=== PATIENT | female | born 1960 | race Asian ===

== ENCOUNTER 2017-04-06 14:38 | Inpatient (IN) | payer OTHER ==
[~2017-04-06] VITALS: Ht 154.9 cm; Wt 51.8 kg
[2017-04-06 17:31] LABS: BASOPHIL % 0.5 % (0-2); PLATELET COUNT 230 x10^3mcL (130-400)
[2017-04-06 17:48] LABS: CALCIUM 8.8 mg/dL (8.5-10.1); CARBON DIOXIDE 28.3 mmol/L (21-32); CHLORIDE SERUM 104 mmol/L (98-107); CREATININE SERUM 0.6 mg/dL (0.6-1.0); GFR1 > 60 mL/min; GLUCOSE SERUM 100 mg/dL (74-106); POTASSIUM SERUM 3.9 mmol/L (3.5-5.1); SODIUM SERUM 139 mmol/L (136-145)
[2017-04-06 17:52] LABS: ALKALINE PHOSPHATASE 63 U/L (46-116); ALT/SGPT 25 U/L (14-59); AST/SGOT 25 U/L (15-37); BILIRUBIN TOTAL 0.3 mg/dL (0.20-1.00); TOTAL PROTEIN, SERUM 8.2 g/dL (6.4-8.2)
[2017-04-06 18:08] LABS: ALBUMIN 3.2 g/dL (3.4-5.0)
[2017-04-06 19:33] LABS: CHOLESTEROL/HDL RATIO 2.9; MAGNESIUM 2.2 mg/dL (1.8-2.4); PHOSPHOROUS 3.2 mg/dL (2.5-4.9)
[2017-04-06 19:40] LABS: FREE T4 1.44 ng/dL (0.76-1.46); FREE THYROXINE INDEX 3.8 ug/dL (1.4-4.5); T4(THYROXINE) 10.6 ug/dL (4.7-13.3)
[2017-04-06 19:55] LABS: T3 TOTAL 0.91 ng/mL
[2017-04-06] MEDS ORDERED: AMOXICILLIN500 MG PO (22:10)
[2017-04-06 22:14] VITALS: BP 145/69
[2017-04-06 23:46] LABS: TOTAL IRON BINDING CAPACITY 266 ug/dL (250-450)
[2017-04-06 23:50] LABS: RED BLOOD CELLS 3.51 M/mm3 (4.10-5.10)
[2017-04-07 00:12] LABS: IRON 28 ug/dL (50-170)
[2017-04-07 00:25] LABS: microscopic required? YES; urine erythrocyte NEGATIVE (NEGATIVE)
[2017-04-07 00:32] LABS: AMPHETAMINE QUAL UR NONE DETECTED (NEG <=1000)
[2017-04-07 05:32] VITALS: BP 139/70
[2017-04-07 10:23] VITALS: BP 106/51
[2017-04-07 10:46] LABS: BASOPHIL % 0.3 % (0-2); PLATELET COUNT 211 x10^3mcL (130-400); RED CELL DISTRIBUTION WIDTH 13.9 % (11.5-14.5)
[2017-04-07 10:56] LABS: CALCIUM 8.8 mg/dL (8.5-10.1); CARBON DIOXIDE 27.2 mmol/L (21-32); CHLORIDE SERUM 105 mmol/L (98-107); CREATININE SERUM 0.6 mg/dL (0.6-1.0); GFR1 > 60 mL/min; GLUCOSE SERUM 130 mg/dL (74-106); MAGNESIUM 2.1 mg/dL (1.8-2.4); PHOSPHOROUS 3.1 mg/dL (2.5-4.9); POTASSIUM SERUM 3.9 mmol/L (3.5-5.1); SODIUM SERUM 141 mmol/L (136-145)
[2017-04-07 18:13] VITALS: BP 136/69
[2017-04-07 20:18] VITALS: BP 120/55
[2017-04-08 04:55] VITALS: BP 135/79
[2017-04-08 08:10] VITALS: BP 128/74
[2017-04-08 12:02] VITALS: BP 124/53
[2017-04-08 15:33] LABS: BASOPHIL % 0.4 % (0-2); PLATELET COUNT 235 x10^3mcL (130-400); RED CELL DISTRIBUTION WIDTH 14.3 % (11.5-14.5)
[2017-04-08 15:35] LABS: CALCIUM 8.5 mg/dL (8.5-10.1); CARBON DIOXIDE 30.2 mmol/L (21-32); CHLORIDE SERUM 107 mmol/L (98-107); CREATININE SERUM 0.6 mg/dL (0.6-1.0); GFR1 > 60 mL/min; GLUCOSE SERUM 103 mg/dL (74-106); POTASSIUM SERUM 3.9 mmol/L (3.5-5.1); SODIUM SERUM 142 mmol/L (136-145)
[2017-04-08 17:17] VITALS: BP 141/74
[2017-04-08 20:15] VITALS: BP 140/66
[2017-04-09 06:11] VITALS: BP 122/59
[2017-04-09 06:38] LABS: BASOPHIL % 0.4 % (0-2); PLATELET COUNT 174 x10^3mcL (130-400); RED CELL DISTRIBUTION WIDTH 14.1 % (11.5-14.5)
[2017-04-09 06:48] LABS: CALCIUM 8.6 mg/dL (8.5-10.1); CARBON DIOXIDE 27.4 mmol/L (21-32); CHLORIDE SERUM 105 mmol/L (98-107); CREATININE SERUM 0.6 mg/dL (0.6-1.0); GFR1 > 60 mL/min; GLUCOSE SERUM 96 mg/dL (74-106); POTASSIUM SERUM 4.2 mmol/L (3.5-5.1); SODIUM SERUM 139 mmol/L (136-145)
[2017-04-09 09:49] VITALS: BP 127/75
[2017-04-09 17:00] VITALS: BP 104/47
[2017-04-09 22:16] VITALS: BP 107/65
[2017-04-10 06:07] VITALS: BP 122/52
[2017-04-10 08:27] VITALS: BP 117/67
[2017-04-10 17:44] VITALS: BP 107/52
[2017-04-10 21:00] VITALS: BP 143/59
[2017-04-11 05:10] VITALS: BP 128/71
[2017-04-11 06:56] LABS: PLATELET COUNT 156 x10^3mcL (130-400); RED CELL DISTRIBUTION WIDTH 13.5 % (11.5-14.5)
[2017-04-11 07:23] LABS: CALCIUM 8.3 mg/dL (8.5-10.1); CARBON DIOXIDE 26.5 mmol/L (21-32); CHLORIDE SERUM 104 mmol/L (98-107); CREATININE SERUM 0.6 mg/dL (0.6-1.0); GFR1 > 60 mL/min; GLUCOSE SERUM 97 mg/dL (74-106); POTASSIUM SERUM 3.9 mmol/L (3.5-5.1); SODIUM SERUM 139 mmol/L (136-145)
[2017-04-11 07:57] VITALS: BP 138/67
[2017-04-11 12:22] LABS: ATYPICAL LYMPH 2 %; BASOPHIL 0 % (0-2); MONOCYTE 18 % (0-7); SEGMENTED NEUTROPHILS 54 % (37-75)
[2017-04-11 12:23] LABS: PLATELET MORPHOLOGY D; rbc morphology (normal/abnorm) ABNORMAL (NORMAL)
[2017-04-11 16:17] VITALS: BP 138/73
[2017-04-11 22:31] VITALS: BP 111/57
[2017-04-12 06:11] LABS: BASOPHIL % 0.1 % (0-2); PLATELET COUNT 167 x10^3mcL (130-400)
[2017-04-12 06:17] LABS: RED CELL DISTRIBUTION WIDTH 14.6 % (11.5-14.5)
[2017-04-12 07:12] VITALS: BP 108/64
[2017-04-12 18:05] VITALS: BP 105/49
[2017-04-12 21:52] VITALS: BP 93/51
[2017-04-13 05:52] VITALS: BP 100/65
[2017-04-13 07:33] LABS: BASOPHIL % 0.3 % (0-2); PLATELET COUNT 157 x10^3mcL (130-400); RED CELL DISTRIBUTION WIDTH 14.3 % (11.5-14.5)
[2017-04-13 09:39] VITALS: BP 104/63
[2017-04-13 12:32] VITALS: Ht 154.9 cm; Wt 51.8 kg
[2017-04-13] MEDS ORDERED: PHECLUD PO (13:32)
[2017-04-13] MEDS ORDERED: DIFLUCAN150 MG PO (13:33)
[2017-04-13] MEDS ORDERED: BENZONATATE200 MG PO (14:06)
[2017-04-13] MEDS ORDERED: AZITHROMYCIN250 M1 PO (14:06)
[2017-04-13 14:08] VITALS: BP 104/63
== END 2017-04-13 15:08 | disposition home or self-care (01) | DRG 166 ==
LOC: ED 14:38 → MU 18:50 → DU 18:50 → MU 04-08 09:32 → DU 04-08 11:15 → MU 04-08 17:27
PROVIDERS: Emergency Medicine; Family Medicine; Internal Medicine
PROC: 0B9M8ZZ Drainage of Bilateral Lungs, Via Natural or Artificial Opening Endoscopic (ICD-10-PCS; principal; 2017-04-09 14:00)
DX: J98.4 Other disorders of lung (principal); N17.0 Acute kidney failure with tubular necrosis; E44.0 Moderate protein-calorie malnutrition; N39.0 Urinary tract infection, site not specified; K21.9 Gastro-esophageal reflux disease without esophagitis; D64.9 Anemia, unspecified; Z53.29 Procedure and treatment not carried out because of patient's decision for other reasons; D72.819 Decreased white blood cell count, unspecified; Z86.11 Personal history of tuberculosis; Z68.20 Body mass index [BMI] 20.0-20.9, adult; Z95.810 Presence of automatic (implantable) cardiac defibrillator
CPT/HCPCS: 83880; 84439; 86480; 87107; 87116; 87206; 94150; J1450; J1956; J2248; J2250; J2270; J2405; J2704; J3010; J3490; J7030; J7120; J7620; Q0092; Q9967